=== PATIENT | female | born 2000 | race Caucasian/White ===

== ENCOUNTER 2019-01-02 10:12 | Emergency (ER) | payer OTHER ==
[2019-01-02 10:51] LABS: BILIRUBIN,URINE NEGATIVE (NEGATIVE); GLUCOSE, URINE (UA) NEGATIVE (NEGATIVE); KETONES,URINE (UA) NEGATIVE (NEGATIVE); LEUKOCYTE ESTERASE, URINE SMALL (NEGATIVE); NITRITE,URINE NEGATIVE (NEGATIVE); OCCULT BLOOD,URINE MODERATE (NEGATIVE); PROTEIN,URINE 100 mg/dL (NEGATIVE); UROBILINOGEN,URINE 0.2 (NORMAL) E.U./dL (NORMAL)
--- NOTE | 2019-01-02 11:07 | ED Physician Documentation ---
History of Present Illness - Stated complaint Stated Complaint: BODY PX/WEAKNESS - Chief complaint Chief Complaint: UTI - History obtained from History obtained from: Patient - History of Present Illness Timing: How many days ago (Several days) Pain level max: 6 Pain level now: 5 - Additonal information Additional information: 18-year-old female presents to the emergency department with complaints of dysuria, urinary frequency and low back pain. Has also felt hot and cold For the past several days. Was seen at [facility] in [place]. Treated for UTI with Bactrim. States she does not feel any better. No nausea or vomiting. No abdominal pain. No STD exposure. No vaginal discharge or b leeding. No sore throat. No cough. No rhinorrhea or congestion Review of Systems Constitutional: reports: Fever (Subjective), Chills, Myalgias Nose: denies: Rhinorrhea / runny nose, Congestion Throat: denies: Sore throat Respiratory: denies: Cough, Wheezing GI: denies: Vomiting, Diarrhea : reports: Dysuria, Frequency, Hesitancy Skin: denies: Rash Musculoskeletal: denies: Neck pain Neurologic: denies: Headache PD PAST MEDICAL HISTORY - Past Medical History Past Medical History: Yes : Chronic bladder infection - Present Medications Home Medications: Ambulatory Orders Medication Instructions Recorded Confirmed Cefdinir 300 mg PO BID #20 capsule 01/02/19 Sulfamethox/Trimeth 800/160 1 each PO BID 01/02/19 01/02/19 [Bactrim Ds 800/160] - Allergies Allergies/Adverse Reactions: Allergies Allergy/AdvReac Type Severity Reaction Status Date / Time phenazopyridine Allergy Hives Verified 01/02/19 10:22 [From Pyridium] - Social History Does the pt smoke?: No Smoking Status: Never smoker PD ED PE NORMAL - Vitals Vital signs reviewed: Yes - General General: Alert and oriented X 3, No acute distress, Well developed/nourished - HEENT HEENT: PERRL, Moist mucous membranes - Neck Neck: Supple, no meningeal sign - Cardiac Cardiac: RRR, Strong equal pulses - Respiratory Respiratory: No respiratory distress, Clear bilaterally - Abdomen Abdomen: Soft, Non tender, Non distended - Back Back: Other (Mild bilateral CVA tenderness) - Derm Derm: Warm and dry, No rash - Extremities Extremities: No edema - Neuro Neuro: Alert and oriented X 3 - Psych Psych: Normal mood, Normal affect Results - Vitals Vitals: Vital Signs - 24 hr 01/02/19 01/02/19 10:20 11:40 Temperature 37.5 C 37.1 C Heart Rate 92 104 H Respiratory 20 18 Rate Blood Pressure 121/83 H 126/78 O2 Saturation 98 98 - Labs Labs: Laboratory Tests 01/02/19 10:30 Urine Color YELLOW Urine Clarity SL Urine pH 7.0 Ur Specific [place] 1.025 Urine Protein 100 H Urine Glucose (UA) NEGATIVE Urine Ketones NEGATIVE Urine Occult Blood MODERATE H Urine Nitrite NEGATIVE Urine Bilirubin NEGATIVE Urine Urobilinogen 0.2 (NORMAL) Ur Leukocyte Esterase SMALL H Urine RBC 11-25 H Urine WBC >25 H Ur Squamous Epith Cells RARE Squamous Urine Bacteria Rare Ur Microscopic Review INDICATED Urine Culture Comments INDICATED Urine HCG, Qual NEGATIVE PD MEDICAL DECISION MAKING - ED course Complexity details: reviewed results, re-evaluated patient, considered differential, d/w patient ED course: Concern for pyelonephritis given her symptoms. Contacted [facility] where she was previously treated, no urine culture done. Therefore we will give her Rocephin intramuscularly and change her to cefdinir if she is not improving on the Bactrim. She is well-appearing, nontoxic. Patient counseled regarding signs and symptoms for which I believe and urgent re-evaluation would be necessary. Patient with good understanding of and agreement to plan and is comfortable going home at this time This document was made in part using voice recognition software. While efforts are made to proofread this document, sound alike and grammatical errors may occur. Departure - Departure Disposition: 01 Home, Self Care Clinical Impression: Pyelonephritis Condition: Good Instructions: ED Kidney Infec Female Follow-Up: Vivien Pantoja MD [Primary Care Provider] - Within 3 Days Prescriptions: Cefdinir 300 mg PO BID #20 capsule Comments: You can stop the Bactrim. Take all antibiotics until gone. Return if you worsen. You should start to feel better in the next 24 to 48 hours. Discharge Date/Time: 01/02/19 11:42
[2019-01-02 11:09] LABS: CLARITY,URINE SL (CLEAR)
[2019-01-02 11:10] LABS: BACTERIA,URINE Rare /HPF (None Seen); SQUAMOUS EPITHELIAL CELL,UR RARE Squamous (<= Few)
[2019-01-02 11:14] LABS: HCG UR QUAL NEGATIVE
[2019-01-02] MEDS ORDERED: cefTRIAXone 1 GM VIAL IM STA (11:15)
[2019-01-02] MEDS ORDERED: LIDOCAINE 1% 2 ML VIAL MC ONE (11:15)
[2019-01-02 11:40] VITALS: BP 126/78
== END 2019-01-02 11:42 | disposition home or self-care (01) ==
LOC: ED 10:12
DX: N12 Tubulo-interstitial nephritis, not specified as acute or chronic (principal)
CPT/HCPCS: 81001; 81003; 81025; 87077; 87086; 87181; 96372; 99283

== ENCOUNTER 2019-01-04 08:13 | Emergency (ER) | payer OTHER ==
[2019-01-04 08:18] VITALS: BP 115/66
--- NOTE | 2019-01-04 08:29 | ED Physician Documentation ---
PD HPI SKIN - Stated complaint Stated Complaint: RASH - Chief complaint Chief Complaint: General - History obtained from History obtained from: Patient - History of Present Illness Timing - onset: Last night Timing - duration: Hours Timing - details: Gradual onset, Still present Location: [place] Quality / character: Itchy, Burning Associated symptoms: No: Fever, Myalgias, Joint pain, Headache, Facial swelling, Dyspnea, Abd pain, N/V/D, Urinary sx Contributing factors: Exposed to medication Similar symptoms before: Has not had sx before Recently seen: Emergency Dept - Additional information Additional information: 18-year-old female who had urinary tract infection was placed on to Septra took the Septra for about 5 days and then she was seen here in the emergency department and changed to Ceftin ear when it was certainly symptoms were not improving. She was also given a injection of Rocephin. She was well and felt her and symptoms have improved or resolved Review of Systems Constitutional: denies: Fever, Chills, Fatigue Eyes: denies: Decreased vision Ears: denies: Ear pain Nose: denies: Rhinorrhea / runny nose, Congestion Throat: denies: Sore throat Cardiac: denies: Chest pain / pressure, Palpitations Respiratory: denies: Dyspnea, Cough GI: denies: Abdominal Pain, Nausea, Vomiting : denies: Dysuria, Frequency Skin: reports: Rash Musculoskeletal: denies: Neck pain, Back pain, Extremity pain PD PAST MEDICAL HISTORY - Past Medical History : Chronic bladder infection - Present Medications Home Medications: Ambulatory Orders Medication Instructions Recorded Confirmed Cefdinir 300 mg PO BID #20 capsule 01/02/19 Nitrofurantoin Monohyd/M-Cryst 100 mg PO BID #10 capsule 01/04/19 [Macrobid 100 mg Capsule] - Allergies Allergies/Adverse Reactions: Allergies Allergy/AdvReac Type Severity Reaction Status Date / Time phenazopyridine Allergy Hives Verified 01/04/19 08:18 [From Pyridium] - Social History Does the pt smoke?: No Smoking Status: Never smoker PD ED PE NORMAL - Vitals Vital signs reviewed: Yes (normal ) - General General: Alert and oriented X 3, No acute distress, Well developed/nourished - HEENT HEENT: Atraumatic, PERRL, EOMI - Neck Neck: Supple, no meningeal sign, No bony TTP - Cardiac Cardiac: RRR, No murmur - Respiratory Respiratory: No respiratory distress, Clear bilaterally - Abdomen Abdomen: Soft, Non tender - Back Back: No CVA TTP, No spinal TTP - Derm Derm: Normal color, Warm and dry, Other (There is an erythematous papular rash to the face, trunk and ext. 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 2-12 intact, No motor deficit, No sensory deficit, Normal speech Eye Opening: Spontaneous Motor: Obeys Commands Verbal: Oriented GCS Score: 15 - Psych Psych: Normal mood, Normal affect Results - Vitals Vitals: Vital Signs - 24 hr 01/04/19 08:17 Temperature 36.4 C L Heart Rate 75 Respiratory 18 Rate Blood Pressure 115/66 O2 Saturation 100 PD MEDICAL DECISION MAKING - ED course Complexity details: reviewed old records, reviewed results, re-evaluated patient, considered differential, d/w patient ED course: 18-year-old female recently placed on a course of Septra has developed a rash 7 days from the beginning of the course of Septra. She was also placed on Ceftin ear and given an injection of Rocephin 2 days ago and the rashes appeared overnight. It is uncertain which agents she is allergic to certainly the Septra is a strong contender. The patient is administered dexamethasone 10 mg orally she is taken off the Ceftin ear and she does require request further treatment and with review of her urine pathology from her most recent specimen shows that it is sensitive to Macrobid and to ceftriaxone and resistant to Septra. Departure - Departure Disposition: 01 Home, Self Care Clinical Impression: Drug allergy, antibiotic Condition: Stable Instructions: ED Drug React Allergic Follow-Up: Vivien Pantoja MD [Primary Care Provider] - Prescriptions: Nitrofurantoin Monohyd/M-Cryst [Macrobid 100 mg Capsule] 100 mg PO BID #10 capsule Comments: Stop taking the cefdinir and start the macrobid. Take benadrly 25mg every 6 hours for the next 2 days.
[2019-01-04] MEDS ORDERED: CHERRY SYRUP 10 ML UDC PO ONE (08:37)
[2019-01-04] MEDS ORDERED: DEXAMETHASONE 10 MG/ML VIAL PO STA (08:37)
== END 2019-01-04 08:59 | disposition home or self-care (01) ==
LOC: ED 08:13
DX: L27.1 Localized skin eruption due to drugs and medicaments taken internally (principal); T36.8X5A Adverse effect of other systemic antibiotics, initial encounter
CPT/HCPCS: 99282; 99284

== ENCOUNTER 2019-08-05 19:38 | Emergency (ER) | payer OTHER ==
--- NOTE | 2019-08-05 19:41 | ED Physician Documentation ---
PD HPI FEMALE - Stated complaint Stated Complaint: FEMALE - History obtained from History obtained from: Patient (the patient is a 19 y/o AD USN F who p/w a cc of dysuria and a states "i think i have a uti". denies flank pain, fevers, cough,h/a, or any other c/o.) Review of Systems Constitutional: reports: Reviewed and negative Eyes: reports: Reviewed and negative Ears: reports: Reviewed and negative Nose: reports: Reviewed and negative Throat: reports: Reviewed and negative Cardiac: reports: Reviewed and negative Respiratory: reports: Reviewed and negative GI: reports: Reviewed and negative : reports: Dysuria Skin: reports: Reviewed and negative Musculoskeletal: reports: Reviewed and negative Neurologic: reports: Reviewed and negative Psychiatric: reports: Reviewed and negative Endocrine: reports: Reviewed and negative Immunocompromised: reports: Reviewed and negative PD PAST MEDICAL HISTORY - Past Medical History : Chronic bladder infection - Present Medications Home Medications: Ambulatory Orders Medication Instructions Recorded Confirmed Cefdinir 300 mg PO BID #20 capsule 01/02/19 Nitrofurantoin Monohyd/M-Cryst 100 mg PO BID #10 capsule 01/04/19 [Macrobid 100 mg Capsule] Nitrofurantoin Monohyd/M-Cryst 100 mg PO BID 5 Days #10 capsule 08/05/19 [Macrobid 100 mg Capsule] - Allergies Allergies/Adverse Reactions: Allergies Allergy/AdvReac Type Severity Reaction Status Date / Time cefdinir Allergy Hives Verified 08/05/19 19:41 phenazopyridine Allergy Hives Verified 01/04/19 08:18 [From Pyridium] - Social History Does the pt smoke?: No Smoking Status: Never smoker PD ED PE NORMAL - Vitals Vital signs reviewed: Yes - General General: Alert and oriented X 3, No acute distress, Well developed/nourished - HEENT HEENT: Atraumatic, PERRL, Moist mucous membranes - Neck Neck: Supple, no meningeal sign, No adenopathy - Cardiac Cardiac: RRR, No murmur, Strong equal pulses - Respiratory Respiratory: No respiratory distress, Clear bilaterally - Abdomen Abdomen: Normal bowel sounds, Soft, Non tender, Non distended, No organomegaly, Other (Suprapubic tenderness to palpation) - Female Female : Pt declined - Rectal Rectal: Pt declined - Back Back: No CVA TTP, No spinal TTP - Derm Derm: Normal color, Warm and dry, No rash - Extremities Extremities: No deformity, No tenderness to palpate, Normal ROM s pain, No edema, No calf tenderness / cord - Neuro Neuro: Alert and oriented X 3, 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, No motor deficit, No sensory deficit, Normal speech - Psych Psych: Normal mood, Normal affect Results - Vitals Vitals: Vital Signs - 24 hr 08/05/19 08/05/19 08/05/19 19:41 19:57 20:23 Temperature 36.6 C Heart Rate 81 76 Respiratory 18 17 18 Rate Blood Pressure 128/68 122/76 O2 Saturation 99 99 Oxygen O2 Source Room air - Labs Labs: Laboratory Tests 08/05/19 19:45 Urine Color YELLOW Urine Clarity CLOUDY Urine pH 6.0 Ur Specific [place] >=1.030 H Urine Protein 100 H Urine Glucose (UA) NEGATIVE Urine Ketones NEGATIVE Urine Occult Blood LARGE H Urine Nitrite NEGATIVE Urine Bilirubin NEGATIVE Urine Urobilinogen 0.2 (NORMAL) Ur Leukocyte Esterase LARGE H Urine RBC TNTC H Urine WBC >25 H Urine WBC Clumps PRESENT Ur Squamous Epith Cells FEW Squamous Urine Bacteria Rare Ur Microscopic Review INDICATED Urine Culture Comments INDICATED Urine HCG, Qual NEGATIVE PD MEDICAL DECISION MAKING - ED course Complexity details: considered differential (hx and pe consistent with cystitis) Departure - Departure Disposition: 01 Home, Self Care Clinical Impression: UTI (urinary tract infection) Qualifiers: Urinary tract infection type: acute cystitis Hematuria presence: without hematuria Qualified Code(s): N30.00 - Acute cystitis without hematuria Condition: Stable Instructions: ED UTI Cystitis Female Follow-Up: Vivien Pantoja MD [Primary Care Provider] - Tomorrow Prescriptions: Nitrofurantoin Monohyd/M-Cryst [Macrobid 100 mg Capsule] 100 mg PO BID 5 Days #10 capsule Discharge Date/Time: 08/05/19 20:23
[2019-08-05 19:57] LABS: BILIRUBIN,URINE NEGATIVE (NEGATIVE); GLUCOSE, URINE (UA) NEGATIVE (NEGATIVE); KETONES,URINE (UA) NEGATIVE (NEGATIVE); LEUKOCYTE ESTERASE, URINE LARGE (NEGATIVE); NITRITE,URINE NEGATIVE (NEGATIVE); OCCULT BLOOD,URINE LARGE (NEGATIVE); PROTEIN,URINE 100 mg/dL (NEGATIVE); UROBILINOGEN,URINE 0.2 (NORMAL) E.U./dL (NORMAL)
[2019-08-05 20:00] LABS: CLARITY,URINE CLOUDY (CLEAR); HCG UR QUAL NEGATIVE
[2019-08-05] MEDS: NITROFURANTOIN MACRO 100 MG CAPSULE PO STA (20:11)
[2019-08-05 20:24] VITALS: BP 122/76
[2019-08-05 20:33] LABS: BACTERIA,URINE Rare /HPF (None Seen); RBC,URINE TNTC /HPF (0-5); SQUAMOUS EPITHELIAL CELL,UR FEW Squamous (<= Few); WBC CLUMPS,URINE PRESENT
== END 2019-08-05 20:23 | disposition home or self-care (01) ==
LOC: ED 19:38
DX: R30.0 Dysuria (principal)
CPT/HCPCS: 81001; 81025; 87086; 99283; A9270; 81003